=== PATIENT | male | born 1955 | race Caucasian/White ===

== ENCOUNTER 2021-10-05 22:25 | Inpatient (IN) | payer MEDICARE, OTHER ==
[~2021-10-05] VITALS: Ht 180.3 cm; Wt 125.9 kg
[2021-10-05 23:49] LABS: Basophils # (auto) 0.1 10 ^3/uL (0-0.2); Eosinophils # (auto) 0 10 ^3/uL (0-0.8); Hematocrit 23.6 % (41.0-53.0); Monocytes # (auto) 1.4 10 ^3/uL (0-1.3); Red Blood Cells 2.79 10^6/uL (4.5-5.90); White Blood Cell 9.8 10^3/uL (4.4-10.8)
[2021-10-05 23:50] LABS: Basophils % (auto) 0.8 % (0.0-2.0); Eosinophils % (auto) 0.1 % (0.0-7.0); Lymphocytes # (auto) 0.4 10 ^3/uL (0.4-5.4); Lymphocytes % (auto) 3.9 % (10.0-50.0); Mean Corpuscular Hemoglobin 28.5 pg (28.0-32.0); Mean Corpuscular Hgb Conc. 33.7 g/dL (32.0-36.0); Mean Corpuscular Volume 84.7 fL (80.0-100.0); Monocytes % (auto) 14.4 % (0.0-12.0); Neutrophils # (auto) 7.9 10 ^3/uL (1.6-8.6); Neutrophils % (auto) 80.8 % (37.0-80.0); Nucleated Red Blood Cells % 0.1 %; Red Cell Distribution Width 18.1 % (11.8-14.3)
[2021-10-06 00:11] LABS: Alanine Aminotransferase 26 U/L (16-61); Albumin 2.2 g/dL (3.4-5.0); Anion Gap 8 (5-15); Aspartate Aminotransferase 52 U/L (15-37); BUN/Creatinine Ratio 10.3; Blood Urea Nitrogen 12 mg/dL (7-18); Calcium 7.6 mg/dL (8.5-10.1); Carbon Dioxide 27 mmol/L (21-32); Chloride 99 mmol/L (98-107); GFR African American 80 mL/min; GFR Non-African American 66 mL/min; Glucose 120 mg/dL (74-106); Potassium 3.8 mmol/L (3.5-5.1); Sodium 134 mmol/L (136-145)
[2021-10-06 00:14] LABS: Alkaline Phosphatase 97 U/L (45-117); Bilirubin, Total 0.6 mg/dL (0.2-1.0); Total Protein 5.8 g/dL (6.4-8.2)
[2021-10-06 00:16] LABS: Blood Alcohol < 3.0 mg/dL (0-5)
[2021-10-06 02:22] LABS: INR 1.14 (0.9-1.15)
[2021-10-06 04:35] LABS: Urine Bacteria NONE SEEN /hpf (None Seen); Urine Blood Negative /uL (Negative); Urine WBC 1 /hpf (0 - 3)
[2021-10-06] MEDS ORDERED: HYDROmorphone HCL 2 MG/ML VL/or syr IV ONE ×3 (04:45→07:45)
[2021-10-06] MEDS ORDERED: NITROGLYCERIN 0.4 MG SL TAB SL PRN (08:15)
[2021-10-06] MEDS ORDERED: LORazepam 2MG/ML-1ML VIAL IV PRN (11:30)
[2021-10-06] MEDS: HYDROmorphone HCL 2 MG/ML VL/or syr IV PRN ×2 (12:06→17:39)
[2021-10-06] MEDS ORDERED: diphenhdrAMINE HCL 50 MG/1 ML VL IV PRN (12:30)
[2021-10-06] MEDS ORDERED: ONDANSETRON HCL 4 MG/2 ML VIAL IV PRN ×2 (12:30→16:30)
[2021-10-06] MEDS: SODIUM CHLORIDE 0.9% 1,000 ML IV SCH (12:34)
[2021-10-06] MEDS ORDERED: MORPHINE SULFATE INJ 2 MG/ml SYRG IV PRN ×2 (14:45→17:30)
[2021-10-06] MEDS: MORPHINE SULFATE INJ 2 MG/ml SYRG IV PRN (15:50)
[2021-10-06] MEDS ORDERED: PROMETHAZINE-DM 5 ML ORAL SYRUP PO PRN (16:30)
[2021-10-06] MEDS ORDERED: SODIUM CHLORIDE 0.9% 1,000 ML IV SCH (16:30)
[2021-10-06] MEDS ORDERED: DOCUSATE SOD 100 MG CAP PO PRN (16:30)
[2021-10-06] MEDS ORDERED: hydrALAZINE HCL 20 MG/ML VL IV PRN (16:30)
[2021-10-06] MEDS ORDERED: LORazepam 0.5 MG TAB PO PRN (16:30)
[2021-10-06] MEDS ORDERED: LACTULOSE 20Gm/30ML SOLN PO PRN (16:30)
[2021-10-06 16:52] VITALS: BP 110/58
[2021-10-06 17:36] VITALS: BP 113/54
[2021-10-06] MEDS: TAMSULOSIN HYDROCHLORIDE 0.4 MG CAP PO SCH (17:39)
[2021-10-06] MEDS ORDERED: IPRATROPIUM BROM 0.5 MG/2.5ML INH SOL NEB SCH (18:00)
[2021-10-06] MEDS ORDERED: HYDR2TAB58 PO (18:43)
[2021-10-06] MEDS ORDERED: ACET325T82 PO (18:43)
[2021-10-06] MEDS ORDERED: FER325T PO (18:43)
[2021-10-06] MEDS ORDERED: MORP30TA PO (18:43)
[2021-10-06] MEDS ORDERED: GABA300C10 PO (18:43)
[2021-10-06] MEDS ORDERED: CYCL-837 PO (18:43)
[2021-10-06 19:43] LABS: Magnesium 2.4 mg/dL (1.6-2.6); Phosphorus 1.8 mg/dL (2.5-4.90)
[2021-10-06 19:51] LABS: INR 1.16 (0.9-1.15); Partial Thromboplastin Time 30.1 sec (23.6-33.0)
[2021-10-06 22:00] VITALS: BP 112/67
[2021-10-07] VITALS (7 sets, daily range): BP systolic 100–128; BP diastolic 56–70
[2021-10-07] MEDS: HYDROmorphone HCL 2 MG/ML VL/or syr IV PRN ×6 (00:13→22:52)
[2021-10-07] MEDS: CLINDAMYCIN 600MG IV 50 ML IV SCH ×4 (01:48→21:23)
[2021-10-07] MEDS: SODIUM CHLORIDE 0.9% 1,000 ML IV SCH ×2 (05:17→21:24)
[2021-10-07 05:41] LABS: Basophils # (auto) 0.1 10 ^3/uL (0-0.2); Eosinophils # (auto) 0 10 ^3/uL (0-0.8); Eosinophils % (auto) 0.1 % (0.0-7.0); White Blood Cell 10.6 10^3/uL (4.4-10.8)
[2021-10-07 05:45] LABS: Basophils % (auto) 1.1 % (0.0-2.0); Hematocrit 22.5 % (41.0-53.0); Hemoglobin 7.9 g/dL (13.5-17.5); Lymphocytes # (auto) 0.6 10 ^3/uL (0.4-5.4); Lymphocytes % (auto) 5.5 % (10.0-50.0); Mean Corpuscular Hemoglobin 29.4 pg (28.0-32.0); Mean Corpuscular Hgb Conc. 35.1 g/dL (32.0-36.0); Mean Corpuscular Volume 83.7 fL (80.0-100.0); Monocytes # (auto) 1.6 10 ^3/uL (0-1.3); Monocytes % (auto) 15.5 % (0.0-12.0); Neutrophils # (auto) 8.2 10 ^3/uL (1.6-8.6); Neutrophils % (auto) 77.8 % (37.0-80.0); Nucleated Red Blood Cells % 0.3 %; Red Blood Cells 2.69 10^6/uL (4.5-5.90)
[2021-10-07 05:51] LABS: Calcium 6.9 mg/dL (8.5-10.1); Magnesium 2.3 mg/dL (1.6-2.6); Potassium 3.2 mmol/L (3.5-5.1)
[2021-10-07 05:58] LABS: INR 1.22 (0.9-1.15); Partial Thromboplastin Time 27.8 sec (23.6-33.0)
[2021-10-07 06:04] LABS: Albumin 1.9 g/dL (3.4-5.0); Bilirubin, Total 0.8 mg/dL (0.2-1.0); Phosphorus 1.9 mg/dL (2.5-4.90); Total Protein 5.6 g/dL (6.4-8.2); Uric Acid 4.1 mg/dL (3.5-7.2)
[2021-10-07 08:12] LABS: Thyroid Stimulating Hormone 0.57 uIU/mL (0.358-3.74)
[2021-10-07] MEDS: MORPHINE SULFATE INJ 2 MG/ml SYRG IV PRN ×2 (08:40→20:09)
[2021-10-07] MEDS: ENOXAPARIN SOD 40 MG/0.4 ML SYRINGE SC SCH (09:31)
[2021-10-07] MEDS: FAMOTIDINE (10MG/ML) 2ML VL IV SCH (09:31)
[2021-10-07] MEDS: cefTRIAXone 1GM/50ML D5W 50 ML IV SCH (09:31)
[2021-10-07] MEDS ORDERED: TAM04C PO (11:11)
[2021-10-07] MEDS ORDERED: ACET300T4 PO (11:11)
[2021-10-07] MEDS ORDERED: HYDR2TAB58 PO (11:11)
[2021-10-07] MEDS ORDERED: FERR-20 PO (11:11)
[2021-10-07] MEDS ORDERED: HYDR-4902 PO (11:11)
[2021-10-07] MEDS ORDERED: THIAMINE HCL 100 MG TAB PO ONE (15:15)
[2021-10-07] MEDS ORDERED: FOLIC ACID 1 MG TAB PO ONE (15:15)
[2021-10-07] MEDS ORDERED: POTASSIUM PHOSPHATE 44 MEQ in D5W 5% 250 ML IV ONE (15:15)
[2021-10-07] MEDS: FERROUS SULFATE 325mg EC TAB PO SCH (18:38)
[2021-10-07] MEDS: TAMSULOSIN HYDROCHLORIDE 0.4 MG CAP PO SCH (18:38)
[2021-10-07] MEDS: MORPHINE SULF 30 mg ER tab PO SCH (21:22)
[2021-10-07] MEDS: GABAPENTIN 300 MG CAP PO SCH (21:23)
[2021-10-08] MEDS: HYDROmorphone HCL 2 MG/ML VL/or syr IV PRN ×5 (01:46→22:18)
[2021-10-08 04:27] LABS: Hematocrit 24.3 % (41.0-53.0); Hemoglobin 8.1 g/dL (13.5-17.5)
[2021-10-08 04:48] LABS: BUN/Creatinine Ratio 10.9; Calcium 6.9 mg/dL (8.5-10.1); Magnesium 2.4 mg/dL (1.6-2.6); Potassium 3.5 mmol/L (3.5-5.1)
[2021-10-08 04:51] LABS: Bilirubin, Total 0.6 mg/dL (0.2-1.0); Total Protein 5.8 g/dL (6.4-8.2)
[2021-10-08 05:00] VITALS: BP 109/55
[2021-10-08] MEDS: GABAPENTIN 300 MG CAP PO SCH ×3 (05:36→22:17)
[2021-10-08] MEDS: CLINDAMYCIN 600MG IV 50 ML IV SCH ×3 (06:29→22:16)
[2021-10-08] MEDS: FERROUS SULFATE 325mg EC TAB PO SCH ×2 (08:45→17:40)
[2021-10-08] MEDS: cefTRIAXone 1GM/50ML D5W 50 ML IV SCH (08:45)
[2021-10-08 09:00] VITALS: BP 98/52
[2021-10-08] MEDS: FAMOTIDINE (10MG/ML) 2ML VL IV SCH (11:01)
[2021-10-08] MEDS: MORPHINE SULF 30 mg ER tab PO SCH ×2 (11:02→22:17)
[2021-10-08] MEDS: MULTIPLE VITAMINS W/ MINERALS TAB PO SCH (11:02)
[2021-10-08] MEDS: THIAMINE HCL 100 MG TAB PO SCH (11:02)
[2021-10-08] MEDS: FOLIC ACID 1 MG TAB PO SCH (11:02)
[2021-10-08] MEDS: ENOXAPARIN SOD 40 MG/0.4 ML SYRINGE SC SCH (11:02)
[2021-10-08 13:00] VITALS: BP 107/60
[2021-10-08] MEDS: SODIUM CHLORIDE 0.9% 1,000 ML IV SCH (14:56)
[2021-10-08 17:00] VITALS: BP 128/55
[2021-10-08] MEDS: TAMSULOSIN HYDROCHLORIDE 0.4 MG CAP PO SCH (17:40)
[2021-10-08 21:44] VITALS: BP 105/69
[2021-10-09] MEDS: HYDROmorphone HCL 2 MG/ML VL/or syr IV PRN ×4 (02:30→20:14)
[2021-10-09 04:58] VITALS: BP 85/61
[2021-10-09] MEDS: CLINDAMYCIN 600MG IV 50 ML IV SCH ×3 (06:00→22:21)
[2021-10-09] MEDS ORDERED: SODIUM CHLORIDE 0.9% 500 ML IV ONE (06:00)
[2021-10-09] MEDS: GABAPENTIN 300 MG CAP PO SCH ×3 (06:00→22:22)
[2021-10-09] MEDS: SODIUM CHLORIDE 0.9% 1,000 ML IV SCH ×2 (07:53→23:50)
[2021-10-09] MEDS: FERROUS SULFATE 325mg EC TAB PO SCH ×2 (08:00→18:21)
[2021-10-09 09:00] VITALS: BP 109/60
[2021-10-09] MEDS: cefTRIAXone 1GM/50ML D5W 50 ML IV SCH (10:53)
[2021-10-09] MEDS: FAMOTIDINE (10MG/ML) 2ML VL IV SCH (10:53)
[2021-10-09] MEDS: ENOXAPARIN SOD 40 MG/0.4 ML SYRINGE SC SCH (10:54)
[2021-10-09] MEDS: MULTIPLE VITAMINS W/ MINERALS TAB PO SCH (11:09)
[2021-10-09] MEDS: THIAMINE HCL 100 MG TAB PO SCH (11:09)
[2021-10-09] MEDS: FOLIC ACID 1 MG TAB PO SCH (11:09)
[2021-10-09 13:00] VITALS: BP 104/66
[2021-10-09] MEDS: MORPHINE SULF 30 mg ER tab PO SCH ×2 (13:05→22:22)
[2021-10-09] MEDS ORDERED: HYDROmorphone HCL 2 MG/ML VL/or syr IV PRN (14:15)
[2021-10-09] MEDS ORDERED: HYDROmorphone HCL 2 MG TAB PO PRN (14:15)
[2021-10-09 17:00] VITALS: BP 114/60
[2021-10-09] MEDS: TAMSULOSIN HYDROCHLORIDE 0.4 MG CAP PO SCH (18:21)
[2021-10-09 22:00] VITALS: BP 105/61
[2021-10-09] MEDS: DexAMETHasone SOD PHOS 4 MG/1ML SDV INJ IV SCH (22:22)
[2021-10-10] MEDS: HYDROmorphone HCL 2 MG/ML VL/or syr IV PRN ×4 (03:10→21:54)
[2021-10-10 03:51] VITALS: BP 113/74
[2021-10-10] MEDS: GABAPENTIN 300 MG CAP PO SCH ×3 (06:00→21:51)
[2021-10-10] MEDS: CLINDAMYCIN 600MG IV 50 ML IV SCH ×2 (06:13→14:00)
[2021-10-10] MEDS: FERROUS SULFATE 325mg EC TAB PO SCH ×2 (08:22→18:50)
[2021-10-10 08:30] VITALS: BP 118/75
[2021-10-10] MEDS: cefTRIAXone 1GM/50ML D5W 50 ML IV SCH (09:00)
[2021-10-10] MEDS: THIAMINE HCL 100 MG TAB PO SCH (10:00)
[2021-10-10] MEDS: FAMOTIDINE (10MG/ML) 2ML VL IV SCH (10:00)
[2021-10-10] MEDS: ENOXAPARIN SOD 40 MG/0.4 ML SYRINGE SC SCH (10:00)
[2021-10-10] MEDS: FOLIC ACID 1 MG TAB PO SCH (10:00)
[2021-10-10] MEDS: MORPHINE SULF 30 mg ER tab PO SCH ×2 (10:00→21:51)
[2021-10-10] MEDS: DexAMETHasone SOD PHOS 4 MG/1ML SDV INJ IV SCH ×2 (10:00→21:43)
[2021-10-10] MEDS: MULTIPLE VITAMINS W/ MINERALS TAB PO SCH (10:00)
[2021-10-10 13:25] VITALS: BP 118/66
[2021-10-10] MEDS ORDERED: MORP1TAB13 PO (15:23)
[2021-10-10] MEDS ORDERED: ABIR250T2 PO (15:23)
[2021-10-10] MEDS ORDERED: PRE5T PO (15:23)
[2021-10-10] MEDS ORDERED: DENOINJ SC (15:23)
[2021-10-10] MEDS: SODIUM CHLORIDE 0.9% 1,000 ML IV SCH (16:30)
[2021-10-10 17:00] VITALS: BP 129/79
[2021-10-10] MEDS: TAMSULOSIN HYDROCHLORIDE 0.4 MG CAP PO SCH (18:49)
[2021-10-10 22:50] VITALS: BP 143/86
[2021-10-11] MEDS: HYDROmorphone HCL 2 MG/ML VL/or syr IV PRN ×5 (02:06→22:22)
[2021-10-11 05:15] VITALS: BP 124/72
[2021-10-11] MEDS: GABAPENTIN 300 MG CAP PO SCH ×3 (06:00→22:20)
[2021-10-11] MEDS ORDERED: GADOTERATE MEG 10 MMOL/20ml INJ (0.5MMOL/ml) IV ONE (08:18)
[2021-10-11] MEDS: FERROUS SULFATE 325mg EC TAB PO SCH ×2 (08:21→18:03)
[2021-10-11 09:00] VITALS: BP 127/64
[2021-10-11] MEDS: SODIUM CHLORIDE 0.9% 1,000 ML IV SCH (09:10)
[2021-10-11] MEDS: THIAMINE HCL 100 MG TAB PO SCH (09:47)
[2021-10-11] MEDS: MORPHINE SULF 30 mg ER tab PO SCH ×2 (09:48→23:17)
[2021-10-11] MEDS: FOLIC ACID 1 MG TAB PO SCH (09:48)
[2021-10-11] MEDS: FAMOTIDINE (10MG/ML) 2ML VL IV SCH (09:48)
[2021-10-11] MEDS: MULTIPLE VITAMINS W/ MINERALS TAB PO SCH (09:48)
[2021-10-11] MEDS: DexAMETHasone SOD PHOS 4 MG/1ML SDV INJ IV SCH ×2 (09:48→22:20)
[2021-10-11] MEDS: ENOXAPARIN SOD 40 MG/0.4 ML SYRINGE SC SCH (09:49)
[2021-10-11 13:00] VITALS: BP 121/60
[2021-10-11 17:00] VITALS: BP 124/67
[2021-10-11] MEDS: TAMSULOSIN HYDROCHLORIDE 0.4 MG CAP PO SCH (18:02)
[2021-10-11 22:00] VITALS: BP 115/69
[2021-10-12] MEDS: HYDROmorphone HCL 2 MG/ML VL/or syr IV PRN ×2 (02:51→08:31)
[2021-10-12] MEDS: GABAPENTIN 300 MG CAP PO SCH ×2 (05:12→14:00)
[2021-10-12] MEDS: FERROUS SULFATE 325mg EC TAB PO SCH (08:28)
[2021-10-12 09:00] VITALS: BP 118/74
[2021-10-12] MEDS ORDERED: HYDROmorphone HCL 2 MG/ML VL/or syr IV PRN (10:00)
[2021-10-12] MEDS ORDERED: PANTOPRAZOLE 40 MG TAB PO SCH (10:00)
[2021-10-12] MEDS: FOLIC ACID 1 MG TAB PO SCH (11:03)
[2021-10-12] MEDS: DexAMETHasone SOD PHOS 4 MG/1ML SDV INJ IV SCH (11:03)
[2021-10-12] MEDS: THIAMINE HCL 100 MG TAB PO SCH (11:04)
[2021-10-12] MEDS: MULTIPLE VITAMINS W/ MINERALS TAB PO SCH (11:04)
[2021-10-12] MEDS: ENOXAPARIN SOD 40 MG/0.4 ML SYRINGE SC SCH (11:05)
[2021-10-12] MEDS: MORPHINE SULF 30 mg ER tab PO SCH (11:05)
[2021-10-12 13:00] VITALS: BP 144/86
== END 2021-10-12 15:35 | disposition home or self-care (01) | DRG 70 ==
LOC: EDBD 22:25 → ER 22:29 → EDBD 22:29 → TELE 10-06 08:04 → TELE-WESTW 10-06 17:04
PROVIDERS: ADMIT Hospitalist; ATTEND Internal Medicine
PROC: 05H933Z Insertion of Infusion Device into Right Brachial Vein, Percutaneous Approach (ICD-10-PCS; principal; 2021-10-10)
PROC: B54MZZA Ultrasonography of Right Upper Extremity Veins, Guidance (ICD-10-PCS; 2021-10-10)
DX: G93.41 Metabolic encephalopathy (principal); J69.0 Pneumonitis due to inhalation of food and vomit; E43 Unspecified severe protein-calorie malnutrition; C79.51 Secondary malignant neoplasm of bone; F11.20 Opioid dependence, uncomplicated; F10.239 Alcohol dependence with withdrawal, unspecified; C78.7 Secondary malignant neoplasm of liver and intrahepatic bile duct; C61 Malignant neoplasm of prostate; G89.4 Chronic pain syndrome; K21.9 Gastro-esophageal reflux disease without esophagitis; D72.810 Lymphocytopenia; D72.821 Monocytosis (symptomatic); Z68.34 Body mass index [BMI] 34.0-34.9, adult; D63.8 Anemia in other chronic diseases classified elsewhere; Z20.822 Contact with and (suspected) exposure to COVID-19; E66.9 Obesity, unspecified; M54.50 Low back pain, unspecified; E87.6 Hypokalemia; F17.200 Nicotine dependence, unspecified, uncomplicated; F41.9 Anxiety disorder, unspecified; I10 Essential (primary) hypertension; K75.81 Nonalcoholic steatohepatitis (NASH); R73.03 Prediabetes; Z85.46 Personal history of malignant neoplasm of prostate; Z92.3 Personal history of irradiation; Z71.6 Tobacco abuse counseling
CPT/HCPCS: 36415; 70450; 71045; 71250; 72157; 72158; 74176; 80053; 80061; 80320; 81001; 82140; 82306; 82550; 82728; 83036; 83615; 83690; 83735; 83880; 84100; 84154; 84439; 84443; 84484; 84550; 85014; 85018; 85025; 85379; 85610; 85652; 85730; 86141; 87040; 87086; 96361; 96374; 96375; 96376; G0378; J0696; J1100; J3490; J7060